=== PATIENT | female | born 1955 ===

== ENCOUNTER → 2021-07-31 | Outpatient (CLI) | payer SELFPAY | LOC: LAB SHORT 14:07 | DX: C44.712 Basal cell carcinoma of skin of right lower limb, including hip (principal); D48.5 Neoplasm of uncertain behavior of skin | CPT/HCPCS: 88312 ==

== ENCOUNTER → 2022-03-09 | Outpatient (CLI) | payer MEDICARE, OTHER | LOC: LAB SHORT 13:29 → PLD 13:29 | DX: D48.5 Neoplasm of uncertain behavior of skin (principal) | CPT/HCPCS: 88312 ==